=== PATIENT | female | born 1960 ===

== ENCOUNTER → 2021-03-06 | Outpatient (CLI) | payer OTHER ==
--- NOTE | 2021-03-06 10:09 | RAD ---
EXAMINATION: Bilateral diagnostic mammogram and bilateral breast ultrasound History: Left Nipple Bloody Discharge; Abnormal RT Mamm Comparison: None available. Baseline exam. Technique: Bilateral digital diagnostic mammogram views were obtained with full field spot compressio n views. CAD was utilized. Focused ultrasound of the left breast in the retroareolar region and of t he right breast at 2-4 and 7-10 was performed. Findings: Mammogram: Breast Tissue Density C : The breasts are heterogeneously dense, which may obscure small masses. There is a 3 mm asymmetry in the right breast just inferior to the nipple on MLO view, 3 cm posterior to the nipple. The 3 mm asymmetry in the retroareolar left breast on ML view resolved with spot comp ression. No suspicious mass in the left breast There are no calcifications or architectural distortio n in either breast. Ultrasound: Right breast: There is a 4 mm simple cyst at 8:30, 3.5 cm from the nipple. There is a 5 x 3 x 4 mm hy poechoic mass at 3:00, 3 cm from the nipple. This is parallel in orientation and has posterior acoust ic enhancement, likely a complicated cyst or clustered microcysts. No abnormal lymph nodes in the rig ht axilla. Left breast: There is a 3 mm hypoechoic ovoid mass with internal septations in the retroareolar left breast. This smooth margins and posterior acoustic enhancement. This may be a complicated cyst or clu stered microcysts. There is an adjacent prominent duct with no intraductal mass or vascularity. Cira l lymph nodes in the left axilla. IMPRESSION: Probably benign 3 mm hypoechoic mass in the retroareolar left breast. Probably benign 5 mm hypoechoic mass in the right breast at 3:00, 3 cm from the nipple. These are likely complicated cysts are clust ered microcysts. RECOMMENDATION: 6 month follow-up bilateral ultrasound to ensure stability. BI-RADS category 3: Probably benign. Mammography is the most sensitive method for finding small breast cancers, but it does not detect the m all and is not a substitute for careful clinical examination. A negative mammogram does not negate a clinically suspicious finding and should not result in delay in biopsying a clinically suspicious a bnormality. "Our facility is accredited by the [employer] Mammography [employer]." Electronically signed by: Leila Huitron MD (03/06/2021 10:07 AM) [id number]
== END ==
LOC: MAMMO 08:45
PROVIDERS: ATTEND Family Medicine
DX: N60.01 Solitary cyst of right breast (principal); N63.14 Unspecified lump in the right breast, lower inner quadrant; N63.20 Unspecified lump in the left breast, unspecified quadrant
CPT/HCPCS: 77066; 76641-50

== ENCOUNTER → 2021-11-07 | Outpatient (CLI) | payer OTHER ==
--- NOTE | 2021-11-07 13:28 | RAD ---
EXAM: Bilateral breast sonogram. HISTORY: 61-year-old female presents for follow-up evaluation of findings within both breasts demonst rated on a sonogram performed 03/06/2021. TECHNIQUE: Sonographic imaging of both breasts targeted to sites of prior findings was performed. COMPARISON: 03/06/2021. FINDINGS: There is no suspicious finding within either breast. There is dense breast parenchyma and t here are scattered areas of fibrocystic change. The previously demonstrated suspected cystic lesions are no longer seen. IMPRESSION: 1. No suspicious sonographic finding. 2. BI-RADS Category 2: Benign finding(s). The patient will be due for bilateral mammography in 4 [facility] according to a previously established mammography interval. Electronically signed by: Jacque Euceda MD (11/07/2021 1:26 PM) [id number]
== END ==
LOC: US 12:38
PROVIDERS: ATTEND Family Medicine
DX: N64.52 Nipple discharge (principal)
CPT/HCPCS: 76641-50